=== PATIENT | male | born 1955 | race Caucasian/White ===

== ENCOUNTER → 2022-03-31 | Outpatient (CLI) | payer MEDICARE, OTHER ==
--- NOTE | 2022-03-31 12:39 | Diagnostic Imaging Report ---
INDICATION: Right shoulder pain. FINDINGS: Four views of the right shoulder show no fracture, dislocation, or other acute abnormalities. IMPRESSION: Negative right shoulder. Dictated by: Dictated on workstation # [id number]
== END ==
LOC: RAD FS 10:07
PROVIDERS: ATTEND Nurse Practitioner
DX: M25.511 Pain in right shoulder (principal)
CPT/HCPCS: 73030

== ENCOUNTER 2023-09-20 06:06 | Emergency (ER) | payer MEDICARE, OTHER ==
[~2023-09-20] VITALS: Ht 172.7 cm; Wt 90.7 kg
--- NOTE | 2023-09-20 06:12 | ED GU-Female ---
General Stated Complaint: KIDNEY STONE|LEFT SIDE PAIN History of Present Illness Date Seen by Provider: Sep 20, 2023 Time Seen by Provider: 06:11 Initial Comments 68-year-old male with PMH of HTN/past kidney stones, is here with complaints of left flank pain which began yesterday and has been increasing in intensity. Patient's pain level is 7/10, and it is colicky in nature. Denies dysuria, hematuria, fever and chills, nausea and vomiting, chest pain. (CHICHI COWAN MD) Allergies and Home Medications Allergies Coded Allergies: No Known Drug Allergies (Unverified , 09/20/23) Patient Home Medication List Home Medication List Reviewed: Yes (CHICHI COWAN MD) Ciprofloxacin HCl (Ciprofloxacin HCl) 500 Mg Tablet, 500 MG PO BID Prescribed by: FARHANA HALL MD on 09/20/23 0719 Last Action: New Order Ketorolac Tromethamine (Ketorolac Tromethamine) 10 Mg Tablet, 10 MG PO TID Prescribed by: FARHANA HALL MD on 09/20/23 0712 Ondansetron (Ondansetron Odt) 8 Mg Tab.rapdis, 8 MG SL Q6H PRN for NAUSEA/VOMITING Prescribed by: FARHANA HALL MD on 09/20/23 0715 Review of Systems Review of Systems Constitutional: no symptoms reported Genitourinary: flank pain (CHICHI COWAN MD) Physical Exam Vital Signs Vital Signs - First Documented 09/20/23 06:10 Temp 36.0 Pulse 76 Resp 18 B/P (MAP) 166/64 (98) Pulse Ox 97 O2 Delivery Room Air (FARHANA HALL DO) Vital Signs Capillary Refill : (CHICHI COWAN MD) Height, Weight, BMI Height: '" Weight: lbs. oz. kg; BMI Method: General Appearance: WD/WN, no apparent distress HEENT: PERRL/EOMI Neck: full range of motion Cardiovascular: regular rate, rhythm Respiratory: lungs clear, normal breath sounds Gastrointestinal: non tender, soft Back: CVA tenderness (L) Neurologic/Psychiatric: alert, oriented x 3 Skin: normal color (CHICHI COWAN MD) Progress/Results/Core Measures Suspected Sepsis SIRS Temperature: Pulse: Respiratory Rate: Laboratory Tests 09/20/23 06:20: White Blood Count 8.9 Blood Pressure / Mean: Laboratory Tests 09/20/23 06:20: Creatinine 1.21, Platelet Count 226, Total Bilirubin 0.4 (CHICHI COWAN MD) Results/Orders Lab Results Laboratory Tests Test 09/20/23 06:20 09/20/23 06:48 Range/Units White Blood Count 8.9 4.3-11.0 10^3/uL Red Blood Count 4.32 4.30-5.52 10^6/uL Hemoglobin 13.4 13.3-17.7 g/dL Hematocrit 39 L 40-54 % Mean Corpuscular Volume 91 80-99 fL Mean Corpuscular Hemoglobin 31 25-34 pg Mean Corpuscular Hemoglobin Concent 34 32-36 g/dL Red Cell Distribution Width 12.6 10.0-14.5 % Platelet Count 226 130-400 10^3/uL Mean Platelet Volume 9.2 9.0-12.2 fL Immature Granulocyte % (Auto) 0 % Neutrophils (%) (Auto) 48 42-75 % Lymphocytes (%) (Auto) 42 12-44 % Monocytes (%) (Auto) 8 0-12 % Eosinophils (%) (Auto) 2 0-10 % Basophils (%) (Auto) 1 0-10 % Neutrophils # (Auto) 4.2 1.8-7.8 10^3/uL Lymphocytes # (Auto) 3.7 1.0-4.0 10^3/uL Monocytes # (Auto) 0.7 0.0-1.0 10^3/uL Eosinophils # (Auto) 0.2 0.0-0.3 10^3/uL Basophils # (Auto) 0.1 0.0-0.1 10^3/uL Immature Granulocyte # (Auto) 0.0 0.0-0.1 10^3/uL Sodium Level 133 L 135-145 MMOL/L Potassium Level 4.1 3.6-5.0 MMOL/L Chloride Level 100 98-107 MMOL/L Carbon Dioxide Level 20 L 21-32 MMOL/L Anion Gap 13 5-14 MMOL/L Blood Urea Nitrogen 12 7-18 MG/DL Creatinine 1.21 0.60-1.30 MG/DL Estimat Glomerular Filtration Rate 66 BUN/Creatinine Ratio 10 Glucose Level 160 H 70-105 MG/DL Calcium Level 9.3 8.5-10.1 MG/DL Corrected Calcium 9.0 8.5-10.1 MG/DL Total Bilirubin 0.4 0.1-1.0 MG/DL Aspartate Amino Transf (AST/SGOT) 27 5-34 U/L Alanine Aminotransferase (ALT/SGPT) 24 0-55 U/L Alkaline Phosphatase 27 L 40-136 U/L Total Protein 8.1 6.4-8.2 GM/DL Albumin 4.4 3.2-4.5 GM/DL Lipase 34 8-78 U/L Urine Color YELLOW Urine Clarity CLEAR Urine pH 6.0 5-9 Urine Specific [place] >=1.030 1.016-1.022 Urine Protein 1+ H NEGATIVE Urine Glucose (UA) NEGATIVE NEGATIVE Urine Ketones 1+ H NEGATIVE Urine Nitrite NEGATIVE NEGATIVE Urine Bilirubin NEGATIVE NEGATIVE Urine Urobilinogen 1.0 < = 1.0 MG/DL Urine Leukocyte Esterase NEGATIVE NEGATIVE Urine RBC (Auto) NEGATIVE NEGATIVE Urine RBC NONE /HPF Urine WBC 0-2 /HPF Urine Squamous Epithelial Cells 5-10 /HPF Urine Crystals NONE /LPF Urine Bacteria LARGE H /HPF Urine Casts NONE /LPF Urine Mucus LARGE H /LPF Urine Culture Indicated YES (FARHANA HALL DO) My Orders Orders - FARHANA AHLL DO Ondansetron Injection (Ondansetron Inj (09/20/23 07:15) Ciprofloxacin Tablet (Ciprofloxacin Tabl (09/20/23 07:10) (FARHANA HALL DO) Medications Given in ED Current Medications Medications Dose Ordered Sig/Samara Route Start Time Stop Time Status Last Admin Dose Admin Ketorolac Tromethamine 15 mg ONCE ONCE IVP 09/20/23 06:30 09/20/23 06:31 DC 09/20/23 06:26 15 MG Ondansetron HCl 8 mg ONCE ONCE IVP 09/20/23 07:15 09/20/23 07:16 DC 09/20/23 07:09 8 MG (FARHANA HALL DO) Vital Signs/I&O 09/20/23 09/20/23 09/20/23 06:10 06:26 07:27 Temp 36.0 36.0 Pulse 76 74 Resp 18 16 B/P (MAP) 166/64 (98) 158/72 Pulse Ox 97 99 O2 Delivery Room Air Room Air (FARHANA HALL DO) Vital Signs/I&O Capillary Refill : (CHICHI COWAN MD) Progress Note : Progress Note 1. LEFT SIDED FLANK PAIN: - CT ABD/ PELVIS WITHOUT CONTRAST: - CBC/ CMP:unremarkable - UA: - NS IVF bolus and Toradol iv given - Pt signed out for follow up of labs and imaging (CHICHI COWAN MD) Diagnostic Imaging Diagonstic Imaging: CT Plain Films/CT/US/NM/MRI: abdomen, pelvis (CHICHI COWAN MD) Departure Communication (Admissions) Patient is hemodynamically stable. I assumed care at shift change at 0700. I agree with the outgoing provider's assessment, history and physical exam. His pain is improved with Toradol per his report. CT scan shows an intrarenal stone but no ureteral stones, hydronephrosis or hydroureter. Urine shows large amount of bacteria, no blood. I think this is likely from UTI and likely not from ureterolithiasis at this time. He is given p.o. Cipro and discharged with Cipro. There is no other evidence of any acute intra-abdominal process. I have inability reviewed his CT scan imaging. (FARHANA HALL DO) Impression Primary Impression: Left flank pain Additional Impression: UTI (urinary tract infection) Qualified Codes: N30.00 - Acute cystitis without hematuria Disposition: 01 HOME, SELF-CARE Condition: Stable Departure-Patient Inst. Referrals: AMOS ALFRED MD (PCP) Primary Care Physician Patient Instructions: Abdominal Pain, Adult ED, Urinary Tract Infection, Adult ED Add. Discharge Instructions: You are seen in the emergency department today for left flank pain. As discussed no stone was identified in your ureter. You do have a stone in your kidney which should not cause you any pain. You do have a urinary tract infection which may be causing your pain. I recommend you take the antibiotics as prescribed until they are gone. Increase your fluids at home. Take the Toradol as prescribed as needed for pain. Use Zofran as needed for nausea. Return to the emergency department for any severe concerns. Scripts Ciprofloxacin HCl (Ciprofloxacin HCl) 500 Mg Tablet 500 MG PO BID for 7 Days, #14 TAB Prov: FARHANA HALL DO 09/20/23 Ondansetron (Ondansetron Odt) 8 Mg Tab.rapdis 8 MG SL Q6H PRN for NAUSEA/VOMITING for 3 Days, #12 TAB Prov: FARHANA HALL DO 09/20/23 Ketorolac Tromethamine (Ketorolac Tromethamine) 10 Mg Tablet 10 MG PO TID for Pain for 3 Days, #9 TAB Prov: FARHANA HALL DO 09/20/23 CHICHI COWAN MD Sep 20, 2023 06:11 FARHANA HALL DO Sep 20, 2023 07:15
[2023-09-20 06:25] LABS: BASOPHILS # (AUTO) 0.1 10^3/uL (0.0-0.1); BASOPHILS % (AUTO) 1 % (0-10); EOSINOPHILS # (AUTO) 0.2 10^3/uL (0.0-0.3); EOSINOPHILS % (AUTO) 2 % (0-10); HEMATOCRIT 39 % (40-54); HEMOGLOBIN 13.4 g/dL (13.3-17.7); LYMPHOCYTES # (AUTO) 3.7 10^3/uL (1.0-4.0); LYMPHOCYTES % (AUTO) 42 % (12-44); MEAN CORPUSCULAR HEMOGLOBIN 31 pg (25-34); MEAN CORPUSCULAR HGB CONC 34 g/dL (32-36); MEAN CORPUSCULAR VOLUME 91 fL (80-99); MEAN PLATELET VOLUME 9.2 fL (9.0-12.2); MONOCYTES # (AUTO) 0.7 10^3/uL (0.0-1.0); MONOCYTES % (AUTO) 8 % (0-12); NEUTROPHILS # (AUTO) 4.2 10^3/uL (1.8-7.8); NEUTROPHILS % (AUTO) 48 % (42-75); PLATELET COUNT 226 10^3/uL (130-400); WHITE BLOOD COUNT 8.9 10^3/uL (4.3-11.0)
[2023-09-20] MEDS ORDERED: KETOROLAC INJ 15 MG/ML VIAL IVP ONE (06:30)
[2023-09-20] MEDS ORDERED: NS IV 1000 ML 1,000 ML IV SCH (06:30)
[2023-09-20 06:39] LABS: BILIRUBIN,TOTAL 0.4 MG/DL (0.1-1.0); CALCIUM 9.3 MG/DL (8.5-10.1); POTASSIUM 4.1 MMOL/L (3.6-5.0)
[2023-09-20 06:40] LABS: ALBUMIN 4.4 GM/DL (3.2-4.5); CREATININE SERUM 1.21 MG/DL (0.60-1.30); TOTAL PROTEIN 8.1 GM/DL (6.4-8.2)
[2023-09-20 06:54] LABS: BILIRUBIN,URINE NEGATIVE (NEGATIVE); CLARITY,URINE CLEAR; COLOR,URINE YELLOW; GLUCOSE, URINE (UA) NEGATIVE (NEGATIVE); KETONES,URINE 1+ (NEGATIVE); LEUKOCYTE ESTERASE ,URINE NEGATIVE (NEGATIVE); NITRITE,URINE NEGATIVE (NEGATIVE); PROTEIN,URINE 1+ (NEGATIVE)
[2023-09-20 06:57] LABS: BACTERIA,URINE LARGE /HPF; WBC,URINE 0-2 /HPF
--- NOTE | 2023-09-20 07:02 | Diagnostic Imaging Report ---
EXAMINATION: CT abdomen and pelvis without contrast. TECHNIQUE: Multiple contiguous axial images were obtained through the abdomen and pelvis without the use of intravenous contrast. All CT scans use one or more of the following dose optimizing techniques: automated exposure control, MA and/or KvP adjustment based on patient size and exam type or iterative reconstruction. HISTORY: Left flank pain. COMPARISON: None available. FINDINGS: Limited views of the lower thorax are unremarkable. The liver is normal without focal lesion. There is no biliary ductal dilation. Gallbladder is normal. Pancreas is normal. Spleen is normal. Adrenal glands are normal. There is a simple cyst in the right kidney. No suspicious renal lesion. There is a 6 mm stone in the lower pole of the left kidney. No ureteral stones. There is no hydronephrosis. Urinary bladder is normal. Bowel is normal in caliber without obstruction or inflammation. No free fluid or air. No abdominal or pelvic lymphadenopathy. Aorta is normal in caliber without aneurysm. There are no suspicious osseus lesions. IMPRESSION: Nonobstructing 6 mm left renal stone. No ureteral stones. Dictated by: Dictated on workstation # [id number]
[2023-09-20] MEDS ORDERED: CIPROFLOXACIN 500 MG TABLET PO STA (07:10)
[2023-09-20] MEDS ORDERED: KETO10TA PO ×2 (07:12→15:30)
[2023-09-20] MEDS ORDERED: ONDANSETRON INJECTION 4 MG/2 ML (SDV) IVP ONE (07:15)
[2023-09-20] MEDS ORDERED: ONDA8TAB13 SL ×2 (07:15→15:30)
[2023-09-20] MEDS ORDERED: CIPR500T5 PO ×2 (07:19→15:28)
[2023-09-20 07:27] VITALS: BP 158/72
== END 2023-09-20 07:27 | disposition home or self-care (01) ==
LOC: EDUNIT# 06:06 → ER FS 06:08
DX: N39.0 Urinary tract infection, site not specified (principal)
CPT/HCPCS: 36415; 74176; 80053; 81000; 83690; 85025; 87088; 96361; 96374; 96375